=== PATIENT | male | born 1975 | race Caucasian/White ===

== ENCOUNTER 2016-08-15 10:53 | Emergency (ER) | payer BC ==
[~2016-08-15 10:53] MED LIST: ADVAIR; FLONASE16 G1 BOTH NARES; LEVOTHYROXINE100 MCG PO; LISINOPRIL-HCT1 EAC3 PO; MOBIC15 MG PO; MOBIC7.5 MG PO; NEO-SYNEPHRINE-15 ML BOTH NARES; NEXIUM40 MG PO; PROTONIX40 MG PO; SYNTHROID25 MCG PO; TESSALON PERLE100 MG PO; ZESTRIL,PRINIV2.5 MG PO; ZYRTEC10 M2 PO
== END 2016-08-15 11:00 | disposition left against medical advice (07) ==
LOC: EME 10:53
DX: R10.9 Unspecified abdominal pain (principal); Z53.21 Procedure and treatment not carried out due to patient leaving prior to being seen by health care provider

== ENCOUNTER 2017-05-22 23:24 | Observation (INO) | payer BC ==
[~2017-05-22] VITALS: Ht 167.6 cm; Wt 85.6 kg
[~2017-05-22 23:24] MED LIST changes: -LEVOTHYROXINE100 MCG PO; +SYNTHROID88 MCG PO
[2017-05-23 00:11] LABS: HEMATOCRIT 38.9 % (38.0-50.0); MCH 29.3 PG (29.0-34.0); MCV 81.4 FL (86-99); PLATELET COUNT 388 K/uL (156-360); RBC DIS.WIDTH-CV 11.9 % (11.8-14.6); RBC DIS.WIDTH-SD 35.3 % (39-53); RED BLOOD COUNT 4.78 M/uL (4.00-5.50); WHITE BLOOD COUNT 8.9 K/uL (4.1-10.2)
[2017-05-23 00:21] LABS: ALBUMIN 3.6 g/dL (3.2-4.8)
[2017-05-23 00:22] LABS: CHLORIDE 92 mEq/L (99-109); SODIUM 126 mEq/L (136-147)
[2017-05-23 00:24] LABS: GLUCOSE 377 mg/dL (70-99); TOTAL PROTEIN 7.2 g/dL (6.4-8.3)
[2017-05-23 00:26] LABS: TOTAL BILIRUBIN 0.3 mg/dL (0.0-1.0)
[2017-05-23 00:27] LABS: ALKALINE PHOSPHATASE 93 IU/L (3-129)
[2017-05-23 00:28] LABS: CREATININE 1.2 mg/dL (0.6-1.3); GFR ESTIMATE (CALCULATED) > 59 mL/min/ (58.99-99999)
[2017-05-23 00:29] LABS: AST (GOT) 16 IU/L (2-34); UREA NITROGEN (BUN) 26 mg/dL (9-23)
[2017-05-23 00:30] LABS: ALT (GPT) 24 IU/L (3-49)
[2017-05-23 00:42] LABS: APPEARANCE CLEAR ((CLEAR)); BILIRUBIN NEGATIVE; BLOOD NEGATIVE; COLOR YELLOW ((YELLOW)); GLUCOSE (STRIP) >=500; KETONES 80; LEUKOCYTES NEGATIVE; NITRITE NEGATIVE; PROTEIN (STRIP) NEGATIVE; UCUL ADDED? NO; UROBILINOGEN 0.2 MG/DL (0.2-1.0)
[2017-05-23 03:28] LABS: BASE EXCESS -5.4 mEq/L (-3 to +3); BICARBONATE 18.9 mEq/L (22-26); CARBOXY HGB 1.6 % (0-5); PCO2 32 mm Hg (35-45); PO2 94 mm Hg (80-100); pH 7.38 (7.35-7.45)
[2017-05-23 03:29] LABS: COMMENTS - BLOOD GASES C+; FI02 21 %; SITE RR
[2017-05-23 03:52] LABS: CHLORIDE 100 mEq/L (99-109); POTASSIUM 3.6 mEq/L (3.7-5.4); SODIUM 131 mEq/L (136-147)
[2017-05-23 03:53] LABS: GLUCOSE 254 mg/dL (70-99)
[2017-05-23 03:57] LABS: GFR ESTIMATE (CALCULATED) > 59 mL/min/ (58.99-99999)
[2017-05-23 03:58] LABS: UREA NITROGEN (BUN) 24 mg/dL (9-23)
[2017-05-23 05:23] VITALS: BP 140/76
[2017-05-23 07:45] VITALS: BP 124/72
[2017-05-23 09:39] LABS: HEMOGLOBIN A1c (GLYCOHEMOGLOB) 14.1 % (Below 5.7)
[2017-05-23 10:46] VITALS: BP 136/78
[2017-05-23] MEDS ORDERED: PANTOPRAZOLE SO40 MG PO (10:46)
[2017-05-23] MEDS ORDERED: ZANTAC150 MG PO (10:47)
[2017-05-23] MEDS ORDERED: ULTRAM50 MG PO (10:48)
[2017-05-23] MEDS ORDERED: HYDROCODON-ACE1 EAC7 PO (10:49)
[2017-05-23] MEDS ORDERED: PIOGLITAZONE HC30 MG PO (10:49)
[2017-05-23] MEDS ORDERED: GLUCOPHAGE XR750 MG PO (10:50)
[2017-05-23] MEDS ORDERED: FLUTICASONE PRO16 GM BOTH NARES (10:51)
[2017-05-23 15:13] VITALS: BP 112/58
[2017-05-23 19:40] VITALS: BP 143/74
[2017-05-24 00:40] VITALS: BP 129/76
[2017-05-24 05:05] VITALS: BP 130/74
[2017-05-24 07:20] LABS: HEMATOCRIT 39.2 % (38.0-50.0); HEMOGLOBIN 13.4 G/DL (12.5-16.6); MCH 28.5 PG (29.0-34.0); MCHC 34.2 G/DL (30.0-36.0); MCV 83.2 FL (86-99); PLATELET COUNT 327 K/uL (156-360); RBC DIS.WIDTH-CV 12.2 % (11.8-14.6); RBC DIS.WIDTH-SD 37.2 % (39-53); RED BLOOD COUNT 4.71 M/uL (4.00-5.50); WHITE BLOOD COUNT 6.4 K/uL (4.1-10.2)
[2017-05-24 07:47] LABS: ALBUMIN 3.1 G/DL (3.2-4.8); ALKALINE PHOSPHATASE 69 IU/L (3-129); ALT (GPT) 22 IU/L (3-49); AST (GOT) 20 IU/L (2-34); CHLORIDE 99 MEQ/L (99-109); CREATININE 0.8 MG/DL (0.6-1.3); GFR ESTIMATE (CALCULATED) > 59 mL/min/ (58.99-99999); GLUCOSE 247 mg/dL (70-99); SODIUM 131 MEQ/L (136-147); TOTAL BILIRUBIN 0.3 MG/DL (0.0-1.0); TOTAL PROTEIN 5.7 G/DL (6.4-8.3); UREA NITROGEN (BUN) 15 mg/dL (9-23)
[2017-05-24 07:48] LABS: POTASSIUM 4.4 MEQ/L (3.7-5.4)
[2017-05-24 11:10] VITALS: BP 130/78
[2017-05-24] MEDS ORDERED: LORATADINE10 M2 PO (11:22)
[2017-05-24] MEDS ORDERED: LEVEMIR FL100 UNIT/1 SC (11:42)
== END 2017-05-24 14:03 | disposition home or self-care (01) ==
LOC: EME 23:24 → EDOF 05-23 04:26 → 5WEST 05-23 04:26 → EDOF 05-23 04:26 → ENRESERV 05-23 04:27 → 5WEST 05-23 05:09 → ENPENDDIS 05-24 → 5WEST 05-24 14:03
PROVIDERS: Internal Medicine; Physician Assistant
DX: E11.65 Type 2 diabetes mellitus with hyperglycemia (principal); E66.9 Obesity, unspecified; Z79.4 Long term (current) use of insulin; E03.9 Hypothyroidism, unspecified; I10 Essential (primary) hypertension; N17.9 Acute kidney failure, unspecified; E86.0 Dehydration; E87.1 Hypo-osmolality and hyponatremia; E87.6 Hypokalemia; K21.9 Gastro-esophageal reflux disease without esophagitis; Z82.49 Family history of ischemic heart disease and other diseases of the circulatory system; Z83.3 Family history of diabetes mellitus
CPT/HCPCS: 36600; 80048; 80053; 81003; 82803; 82948; 83036; 85027; 99281; 99285; G0378; J1644; J1815; J7030